=== PATIENT | female | born 1965 | race Caucasian/White ===

== ENCOUNTER → 2019-11-15 12:24 | Outpatient (CLI) | payer BC, SELFPAY ==
--- NOTE | ~2019-11-15 | XR_ITS ---
XR lumbar spine 2-3V DATE: 11/15/2019 14:04 INDICATION: Low back pain TECHNIQUE: AP, lateral, coned lateral lumbosacral views COMPARISON: None FINDINGS: There is diffuse osteopenia. There is grade 1 anterolisthesis at L4-5 due to prominent degenerative change at the apophyseal joint s, which is evident at L4-5 and L5-S1 in particular. No fracture or bone destruction is detected. There is a transitional first sacral vertebra which may be a source of chronic low back pain. The sacroiliac joints are intact. Abdominal aortic and iliac arterial calcifications are noted. IMPRESSION: Degenerative change at the apophyseal joints with associated grade 1 anterolisthesis at L 4-5 Diffuse osteopenia Transitional lumbosacral vertebra Reviewed, dictated and finalized at location A. IMPRESSION: Degenerative change at the apophyseal joints with associated grade 1 anterolisthesis at L4-5 Diffuse osteopenia Transitional lumbosacral vertebra
--- NOTE | ~2019-11-15 | CT_ITS ---
EXAMINATION: CT lung screening DATE: 11/15/2019 13:08 INDICATION: Personal history of tobacco dependence, current smoker with 30 pack year history TECHNIQUE: Computed tomography (CT) of the chest was performed without intravenous contrast. The dose -length product (DLP) was 380.32 mGy-cm. Automated exposure control and iterative reconstruction tech Mim[employer] were employed. COMPARISON: None FINDINGS: There is a 4 mm groundglass nodule of the right lower lobe. There are widespread groundglas s opacities of the lungs, most most prevalent in the mid and lower lung zones. No pleural effusion or pneumothorax is identified. The heart size is normal. There is right paratracheal lymphadenopathy. T here is mild thoracic spondylosis. IMPRESSION: 1. Lung-RADS category 2S: Benign appearance or behavior. Continue annual screening with noncontrast l ow-dose chest CT in 12 months. 2. Widespread groundglass opacities of the lungs. Differential is broad including mild pulmonary mine a, hypersensitivity pneumonitis, NSIP, drug toxicity, infection, and air trapping. Reviewed, dictated and finalized at location B. IMPRESSION: 1. Lung-RADS category 2S: Benign appearance or behavior. Continue annual screen ing with noncontrast low-dose chest CT in 12 months. 2. Widespread groundglass opacities of the lungs. Differential is broad includi ng mild pulmonary edema, hypersensitivity pneumonitis, NSIP, drug toxicity, inf ection, and air trapping.
--- NOTE | ~2019-11-15 | MM_ITS ---
EXAMINATION: MM screening filemon BI w topher HISTORY: Screening TECHNIQUE: Craniocaudal and mediolateral oblique 3-D tomosynthesis images were obtained and synthetic 2-D images were generated. CAD analysis was submitted and interpreted. COMPARISON: 02/12/2010 BREAST PARENCHYMAL COMPOSITION: The breasts are almost entirely fatty. FINDINGS: There is no evidence of suspicious mass, calcification, or architectural distortion to sugg est malignancy in either breast. There has been no suspicious interval change. IMPRESSION: 1. No mammographic evidence of malignancy. 2. Recommend routine screening mammography in one year. BI-RADS Category 1: Negative Reviewed, dictated and finalized at location A.
== END ==
PROVIDERS: PCP Physician Assistant; Visit Provider Physician Assistant
DX: Z12.31 Encounter for screening mammogram for malignant neoplasm of breast (principal); M54.5 Low back pain; Z72.0 Tobacco use; M85.80 Other specified disorders of bone density and structure, unspecified site
CPT/HCPCS: 72100; 77063; 77067; G0297

== ENCOUNTER 2020-01-23 06:53 | Outpatient (NON) | payer BC, SELFPAY ==
[2020-01-24 14:04] LABS: SARS-CoV-2 RNA PCR Negative
== END 2020-01-23 06:54 ==
LOC: ANHCOVIDDT 07:01
PROVIDERS: PCP Family Medicine; Visit Provider Family Medicine
DX: Z20.828 Contact with and (suspected) exposure to other viral communicable diseases (principal); R05 Cough; R43.0 Anosmia; R43.2 Parageusia
CPT/HCPCS: 87635; C9803; U0003

== ENCOUNTER 2020-03-04 09:23 | Outpatient (CLI) | payer BC, SELFPAY ==
--- NOTE | ~2020-03-04 | CT_ITS ---
EXAMINATION: CT chest high resolution wo co DATE: 03/04/2020 09:45 INDICATION: Other nonspecific abnormal finding of the lung field TECHNIQUE: Computed tomography (CT) of the chest was performed without intravenous contrast. The dose -length product (DLP) was 488.13 mGy-cm. Automated exposure control and iterative reconstruction tech nique were employed. COMPARISON: 11/15/2019 FINDINGS: There are unchanged widespread groundglass opacities of the lungs, most prevalent in the mi d and lower lung zones. No focal airspace opacity is identified. There is no pleural effusion or pneu mothorax. Right paratracheal lymphadenopathy persists without significant change. The heart size is n ormal. Calcified coronary artery atherosclerosis is noted. There is mild thoracic spondylosis. IMPRESSION: 1. Chronic widespread groundglass opacities, worst in the mid and lower lung zones. As previously brady cribed, differential is broad and includes hypersensitivity pneumonitis, NSIP, desquamative interstit ial pneumonitis (DIP, drug toxicity, infection, and air-trapping. Pulmonary edema is less likely give n chronicity. Reviewed, dictated and finalized at location A. E WATER OR WATER PLANT OPERATOR IMPRESSION: 1. Chronic widespread groundglass opacities, worst in the mid and lower lung zo lolly. As previously described, differential is broad and includes hypersensitivi ty pneumonitis, NSIP, desquamative interstitial pneumonitis (DIP, drug toxicity , infection, and air-trapping. Pulmonary edema is less likely given chronicity.
== END 2020-03-04 09:24 | disposition home or self-care (01) ==
PROVIDERS: PCP Family Medicine; Visit Provider Internal Medicine Critical Care Medicine
DX: R91.8 Other nonspecific abnormal finding of lung field (principal); M47.814 Spondylosis without myelopathy or radiculopathy, thoracic region
CPT/HCPCS: 71250

== ENCOUNTER 2020-03-29 09:09 | Outpatient (CLI) | payer BC, SELFPAY ==
--- NOTE | 2020-03-29 13:48 | WPDPFTINT ---
PFT Interpretation This is a pulmonary function test with pre and post-bronchodilator spirometry, plethysmography and diffusing capacity. The test was performed and results interpreted in accordance with the 2019 and 2005 ATS/ERS Task Force guidelines respectively using the Chava/Polkirstin reference equations. Findings: Spirometry: The contour the inspiratory and expiratory flow tracing are normal. The pre bronchodilator FVC is 2.08, 68% predicted. The pre bronchodilator FEV1 is 1.68, 73% predicted. The FEV1: FVC ratio is 81%. The post bronchodilator FVC is 2.07 L, representing no change. The post bronchodilator FEV1 is 1.72 L, representing a 2% increase. Plethysmography: The total lung capacity is 2.73, 58% predicted. The functional residual capacity 0.97 L, 51% predicted. The residual volume is 0.66 L, 38% predicted. Diffusing capacity: The absolute diffusion capacity is 10.3, 39% predicted. The diffusing capacity corrected for alveolar volume is 3.71, 94% predicted. Impression: There is a mild restrictive ventilatory abnormality. The spirometry is normal without evidence of an obstructive abnormality. There is no significant improvement after inhaling a single dose of albuterol. The absolute diffusing capacity is severely decreased but normalizes when corrected for alveolar volume. There are no prior studies for comparison
== END 2020-03-29 09:10 | disposition home or self-care (01) ==
PROVIDERS: Family Provider Family Medicine; PCP Family Medicine; Visit Provider Internal Medicine Critical Care Medicine
DX: R91.8 Other nonspecific abnormal finding of lung field (principal); R94.2 Abnormal results of pulmonary function studies
CPT/HCPCS: 94060; 94726; 94729

== ENCOUNTER → 2020-11-20 17:47 | Outpatient (CLI) | payer BC, SELFPAY ==
--- NOTE | ~2020-11-20 | DEXA_ITS ---
Bone Density Report Name: Janay Garcia Age: 55 Sex: Female Ethnicity: White Date of : 1965 Indication: postmenopausal; screening for osteoporosis; hysterectomy; Referring Provider: HAMLET MIRAMONTES Study: Bone densitometry was performed. Exam Date: November 20, 2020 Accession number: [id number] Bone Density: Region BMD T-score Z-score Classification AP Spine (L1-L4) 0.971 -0.7 0.5 Normal Femoral Neck (Left) 0.735 -1.0 0.1 Normal Total Hip (Left) 1.030 0.7 1.5 Normal Femoral Neck (Right) 0.731 -1.1 0.1 Osteopenia Total Hip (Right) 0.977 0.3 1.0 Normal Total Hip Mean 1.004 0.5 1.3 Normal World Health Organization criteria for BMD impression classify patients as: Normal (T-score at or above -1.0), Osteopenia (T-score between -1.0 and -2.5), or Osteoporosis (T-score at or below -2.5). 10-year Fracture Risk(1): Major Osteoporotic Fracture 5.5% Hip Fracture 0.5% Reported Risk Factors: [place] (), Neck BMD=0.731, BMI=39.7, smoking (1) FRAX(R) Version 3.08. Fracture probability calculated for an untreated patient. Fracture probability may be lower if the patient has received treatment. Clinical Information Provided by Patient: Smokes Has the following medical conditions: Hysterectomy Patient maximum height was 64.0 Menopause Age: 41 No regular weight bearing exercise Drinks caffeinated beverages Onset of menses at age 11 Number of children 3 Impression: The patient has low bone mass, based on the Right Femoral Neck T-score. The patient has an estimated ten-year risk of hip fracture of 0.5% and an estimated ten-year risk of major fracture of 5.5%, based on the WHO FRAX algorithm. The patient has risk factors, including: smoking. Discussion: BONE DENSITY IS LOW AT ONE OR MORE SKELETAL SITES. This patient's lowest T-score is low at one or more skeletal sites. It meets the World Health Organization's (WHO) criteria for ?low bone mass? (T-score between -1.0 and -2.5). The patient's 10-year risk of fracture as calculated by FRAX is less than the threshold where pharmacological therapy is recommended by the National Osteoporosis Foundation (NOF). However, all treatment decisions require clinical judgment and consideration of individual patient factors, including patient preferences, comorbidities, previous drug use, risk factors not captured in the FRAX model (e.g., frailty, falls, vitamin D deficiency, increased bone turnover, interval significant decline in bone density) and possible under or overestimation of fracture risk by FRAX. The patient should follow a healthful lifestyle (good nutrition with adequate calcium and vitamin D, and appropriate weight-bearing exercise). Follow-Up: Consider repeating this study in 2 to 3 years to reassess this patient's status, or sooner
== END ==
PROVIDERS: PCP Family Medicine; Visit Provider Family Medicine
DX: Z78.0 Asymptomatic menopausal state (principal); M85.851 Other specified disorders of bone density and structure, right thigh
CPT/HCPCS: 77080

== ENCOUNTER 2021-03-05 17:40 | Emergency (ER) | payer BC, SELFPAY ==
--- NOTE | ~2021-03-05 | XR_ITS ---
EXAMINATION: XR chest 2V DATE: 03/05/2021 18:12 INDICATION: Cough and shortness of breath TECHNIQUE: PA and lateral views of the chest are obtained. COMPARISON: 01/16/2008 FINDINGS: The lungs are free of acute opacities. There is no pleural effusion or pneumothorax. The ca rdiomediastinal silhouette is normal. There is mild thoracic spondylosis. IMPRESSION: 1. No acute cardiopulmonary abnormality. Reviewed, dictated and finalized at location F. R GENERAL
[2021-03-05 18:03] VITALS: BP 156/88; PULSE 105; RESP 18; TEMP 36.6; O2SAT 97
--- NOTE | 2021-03-05 18:09 | ECG_ITS ---
Measurements Intervals [place] Rate: 103 P: 46 NC: 161 QRS: 18 QRSD: 90 T: 29 QT: 314 QTc: 413 Interpretive Statements SINUS TACHYCARDIA LOW QRS VOLTAGE IN PRECORDIAL LEADS BORDERLINE ST-T WAVE ABNORMALITY- INF/HIGH LAT LEADS BASELINE ARTIFACT- II, III, AVF, V4-V6 BORDERLINE ECG Electronically Signed On 03-05-2021 19:16:49 STORE OPERATIONS SPECIALIST by Travis Bower D.O.
--- NOTE | 2021-03-05 18:09 | ED.GENADULT ---
HPI - General Adult General Chief complaint: Shortness of Breath/Dyspnea Stated complaint: sob,heart fluttering,upper back pain Source: patient Mode of arrival: ambulatory Limitations: no limitations History of Present Illness HPI narrative: Patient is a 55-year-old female with history significant for pre diabetes and GERD who presents to the [facility] via POV for evaluation of shortness of breath that has been present for 2 weeks. Additionally, she reports a pinching sensation between shoulder blades, wet, nonproductive cough and heart flutter. She states cough is chronic and intermittent. Heart fluttering has been intermittent for 1 week. She is currently taking prednisone prescribed by her PCP. She states she started this medication approximately 9 days ago as her PCP thought she may have a pulled muscle in her back. Nothing improves or worsen symptoms. Of note, patient reports her last A1c to be 6.6. She also reports discontinuing her Metformin because it was not working . Related Data Allergies Allergy/AdvReac Type Severity Reaction Status Date / Time erythromycin base Allergy Unknown severe Verified 03/05/21 18:05 chest pain/pressure fluticasone Allergy Unknown Headache Verified 03/05/21 18:05 Sulfa (Sulfonamide Allergy Unknown Nausea Verified 03/05/21 18:05 Antibiotics) Review of Systems Review of Systems: Denies fever, chills, sweats, change in appetite, poor p.o. intake, skin color changes, LOC, near syncopal episode, syncope, dizziness, paresthesias, weakness, edema, chest pain, orthopnea, wheezing, abdominal pain, nausea, vomiting, diarrhea, myalgias PMFSH Past Medical History Medical History (Updated 03/05/21 @ 18:59 by LIZZY Haywood, BC) Bilateral hip joint arthritis Diabetes Dysosmia GERD (gastroesophageal reflux disease) Meralgia paraesthetica Trochanteric bursitis of both hips Surgical History Surgical History H/O: hysterectomy (~2004) Family History Family History Grandparent Carcinoma of colon Diabetes mellitus Family history of cardiovascular disease Mother Diabetes mellitus Hypertension Family history of cardiovascular disease Sibling Diabetes mellitus Father Patient's father is Family history of cardiovascular disease Acute myocardial infarction Social History Social History Alcohol intake: current Comments I have reviewed and agree with the patient's past medical, surgical, social, and family hx as documented by the RN. There is no relevant family history pertinent to the presenting complaint. Exam Narrative: GENERAL: Well-appearing, well-nourished, and in no acute distress. HEAD: Normocephalic, atraumatic. No sinus tenderness or facial swelling appreciated. EYES: PERRLA and EOMI. No evidence of erythema, swelling, or drainage. ENT: Bilateral external ears and ear canals normal. Bilateral TMs are normal.No TM perforation. Nares clear, no rhinorrhea or epistaxis. Bilateral turbinates without erythema/ swelling. Mucous membranes moist and pink. Uvula is midline without erythema and swelling. No evidence of petechial rash, cobblestoning, lesions, ulcers, erythema, swelling, exudates, peritonsillar abscess, tenting, or drooling. Breath odor and voice normal. NECK: Supple. No Lymphadenopathy or nuchal rigidity appreciated. CHEST: No respiratory distress. Mild inspiratory wheezes noted throughout posterior bilateral lung tenorio. No evidence of cough or pleuritic cp upon examination. HEART: Regular rate and rhythm. No murmur, gallop, or rub heard. EXTREMITIES: Normal range of motion. No edema. SKIN: Warm, dry, no rash. NEURO: No focal deficits. Alert and oriented x3. Course Course Emergency Course: The patient/guardian displays adequate decision rl
--- NOTE | 2021-03-05 19:37 | ED_ITS ---
HPI - General Adult General Chief complaint: Shortness of Breath/Dyspnea Stated complaint: sob,heart fluttering,upper back pain Source: patient Mode of arrival: ambulatory Limitations: no limitations Related Data Allergies Allergy/AdvReac Type Severity Reaction Status Date / Time erythromycin base Allergy Unknown severe Verified 03/05/21 18:05 chest pain/pressure fluticasone Allergy Unknown Headache Verified 03/05/21 18:05 Sulfa (Sulfonamide Allergy Unknown Nausea Verified 03/05/21 18:05 Antibiotics) [facility] Past Medical History Medical History (Updated 03/05/21 @ 18:59 by LIZZY Haywood, BC) Bilateral hip joint arthritis Diabetes Dysosmia GERD (gastroesophageal reflux disease) Meralgia paraesthetica Trochanteric bursitis of both hips Surgical History Surgical History H/O: hysterectomy (~2004) Family History Family History Grandparent Carcinoma of colon Diabetes mellitus Family history of cardiovascular disease Mother Diabetes mellitus Hypertension Family history of cardiovascular disease Sibling Diabetes mellitus Father Patient's father is Family history of cardiovascular disease Acute myocardial infarction Social History Social History Alcohol intake: current Course Vital Signs Vital signs: Vital Signs Temperature 97.9 F 03/05/21 18:03 Pulse Rate 105 H 03/05/21 18:03 Respiratory Rate 18 03/05/21 18:03 Blood Pressure 156/88 H 03/05/21 18:03 Pulse Oximetry 97 03/05/21 18:03 Temperature 97.9 F 03/05/21 18:03 Pulse Rate 105 H 03/05/21 18:03 Respiratory Rate 18 03/05/21 18:03 Blood Pressure 156/88 H 03/05/21 18:03 Pulse Oximetry 97 03/05/21 18:03 Medical Decision Making Vital Signs Vital Signs: Vital Signs Temperature 97.9 F 03/05/21 18:03 Pulse Rate 105 H 03/05/21 18:03 Respiratory Rate 18 03/05/21 18:03 Blood Pressure 156/88 H 03/05/21 18:03 Pulse Oximetry 97 03/05/21 18:03 Temperature 97.9 F 03/05/21 18:03 Pulse Rate 105 H 03/05/21 18:03 Respiratory Rate 18 03/05/21 18:03 Blood Pressure 156/88 H 03/05/21 18:03 Pulse Oximetry 97 03/05/21 18:03 Discharge Plan Discharge Clinical Impression: Shortness of breath Patient Disposition: Left Against Medical Advice Condition: Guarded Prognosis Additional Instructions: GO TO ER NOW Prescriptions: No Action famotidine 20 mg tablet 20 mg PO BID Qty: 180 RF: 3 Follow-up/Referrals: Monico Leiva MD [Primary Care Provider] - Time of Disposition: 18:59
== END 2021-03-05 19:00 | disposition left against medical advice (07) ==
PROVIDERS: Emergency Provider Nurse Practitioner Family; PCP Family Medicine
DX: R06.02 Shortness of breath (principal); M17.0 Bilateral primary osteoarthritis of knee; E11.9 Type 2 diabetes mellitus without complications; K21.9 Gastro-esophageal reflux disease without esophagitis
CPT/HCPCS: 71046; 93005; 99213; G0463